=== PATIENT | female | born 1965 | race Caucasian/White ===

== ENCOUNTER → 2022-02-02 08:21 | Outpatient (CLI) | payer OTHER, SELFPAY ==
--- NOTE | ~2022-02-02 | MM_ITS ---
EXAMINATION: MM screening jordy BI w garrett HISTORY: Screening mammogram TECHNIQUE: Craniocaudal and mediolateral oblique 3-D tomosynthesis images were obtained and synthetic 2-D images were generated. CAD analysis was submitted and interpreted. COMPARISON: 06/05/2018, bilateral screening mammogram examinations BREAST PARENCHYMAL COMPOSITION: There are scattered areas of fibroglandular density. FINDINGS: There is no evidence of suspicious mass, calcification, or architectural distortion to sugg est malignancy in either breast. There has been no suspicious interval change. IMPRESSION: 1. No mammographic evidence of malignancy. 2. Recommend routine screening mammography in one year. BI-RADS Category 1: Negative Reviewed, dictated and finalized at location A. ETARY ADMINISTRATIVE ASSISTANT
== END ==
PROVIDERS: PCP Obstetrics & Gynecology; Visit Provider Obstetrics & Gynecology
DX: Z12.31 Encounter for screening mammogram for malignant neoplasm of breast (principal)
CPT/HCPCS: 77063; 77067

== ENCOUNTER 2022-03-31 12:22 | Outpatient (CLI) | payer OTHER, SELFPAY ==
--- NOTE | ~2022-03-31 | CT_ITS ---
EXAMINATION: CT abdomen pelvis w con DATE: 03/31/2022 13:41 INDICATION: Abdominal pain. TECHNIQUE: Computed tomography (CT) of the abdomen and pelvis was performed with 100 mL Omnipaque 350 intravenous contrast. Automated exposure control and iterative reconstruction technique were employe d. The dose-length product was 222.66 mGy-cm. COMPARISON: None. FINDINGS: The visualized portions of the lung bases demonstrates minimal atelectasis. No pleural effu javier. The heart size is normal. No pericardial effusion. There is a small sliding hiatal hernia. The liver, gallbladder, spleen, pancreas, adrenal glands, and right kidney are normal. There is a [address] in left kidney. The appendix is normal. There is wall thickening involving the distal 30-40 cm of ileum. There are no dilated loops of bowel. There are no pathologically enlarged lymph nodes. There i s a small volume of ascites. There is no significant stenosis of celiac axis, superior mesenteric art pamela, or inferior mesenteric artery. There is enlargement of left ovarian vein, consistent with pelvic venous insufficiency. There is moderate thoracic spondylosis and mild lumbar spondylosis. 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 IMPRESSION: 1. Wall thickening involving the distal 30-40 cm of ileum, consistent with enteritis. The differentia l diagnosis includes infectious enteritis and Crohn disease. 2. Small volume of ascites. Reviewed, dictated and finalized at location A. R AND SCALER IMPRESSION: 1. Wall thickening involving the distal 30-40 cm of ileum, consistent with ente ritis. The differential diagnosis includes infectious enteritis and Crohn disea se. 2. Small volume of ascites.
[2022-03-31 13:31] LABS: Estimated Glomerular Filt Rate > 60
== END 2022-03-31 12:23 | disposition home or self-care (01) ==
PROVIDERS: PCP Family Medicine; Visit Provider Family Medicine
DX: R10.9 Unspecified abdominal pain (principal); R18.8 Other ascites
CPT/HCPCS: 74177; Q9967

== ENCOUNTER 2023-11-29 15:54 | Outpatient (CLI) | payer OTHER, SELFPAY ==
--- NOTE | ~2023-11-29 | MM_ITS ---
EXAMINATION: MM screening jordy BI w garrett HISTORY: Screening mammogram TECHNIQUE: Craniocaudal and mediolateral oblique 3-D tomosynthesis images were obtained and synthetic 2-D images were generated. CAD analysis was submitted and interpreted. COMPARISON: 02/02/2022, 06/05/2018, 04/23/2014 BREAST PARENCHYMAL COMPOSITION:Dense: The breasts are heterogeneously dense, which may obscure small masses. FINDINGS: There is a focal area of more pronounced distortion in the outer left breast. No suspicious mass, calcification, or architectural distortion are identified in the right breast. IMPRESSION: Focal area of more pronounced distortion in the outer left breast. Spot compression views, and possib ly ultrasound, recommended for further evaluation. BI-RADS Category 0: Incomplete: Needs additional imaging evaluation. Reviewed, dictated and finalized at [facility]. IMPRESSION: Focal area of more pronounced distortion in the outer left breast. Spot juan javier views, and possibly ultrasound, recommended for further evaluation. BI-RADS Category 0: Incomplete: Needs additional imaging evaluation.
== END 2023-11-29 15:55 | disposition home or self-care (01) ==
LOC: MICIMG 15:55
PROVIDERS: PCP Obstetrics & Gynecology; Visit Provider Obstetrics & Gynecology
DX: Z12.31 Encounter for screening mammogram for malignant neoplasm of breast (principal); R92.8 Other abnormal and inconclusive findings on diagnostic imaging of breast
CPT/HCPCS: 77063; 77067

== ENCOUNTER 2023-12-16 08:15 | Outpatient (CLI) | payer OTHER, SELFPAY ==
--- NOTE | ~2023-12-16 | MMUS_ITS ---
EXAMINATION: MM diagnostic jordy LT w garrett, US breast LT limited HISTORY: Follow-up left breast asymmetry TECHNIQUE: Additional 3-D tomosynthesis images of the left breast were performed and synthetic 2-D im ages were generated. CAD analysis was submitted and interpreted. High resolution Limited left breast ultrasound was performed. COMPARISON: Comparison to multiple prior studies sequentially, with oldest reviewed study dated 04/23. BREAST PARENCHYMAL COMPOSITION: Not dense: There are scattered areas of fibroglandular density. FINDINGS: MAMMOGRAPHIC FINDINGS: There is a persistent asymmetry in the upper outer quadrant of the left breast. No definitive archite ctural distortion or discrete mass. There are no suspicious calcifications. ULTRASOUND: Limited left breast ultrasound: At 2:00, 5 cm from the nipple there is a normal intramammary lymph no de measuring 6 mm. No suspicious masses to suggest malignancy. IMPRESSION: 1. Probable benign asymmetry of the left breast without sonographic correlate. 2. Recommend 6 month follow-up diagnostic left mammogram BI-RADS category 3, probably benign findings. Reviewed, dictated and finalized at location B. IMPRESSION: 1. Probable benign asymmetry of the left breast without sonographic correlate. 2. Recommend 6 month follow-up diagnostic left mammogram BI-RADS category 3, probably benign findings.
== END 2023-12-16 08:16 | disposition home or self-care (01) ==
LOC: MICIMG 08:16
PROVIDERS: PCP Obstetrics & Gynecology; Visit Provider Obstetrics & Gynecology
DX: R92.8 Other abnormal and inconclusive findings on diagnostic imaging of breast (principal)
CPT/HCPCS: 76642; 77061; 77065; G0279

== ENCOUNTER 2024-06-18 08:14 | Outpatient (CLI) | payer OTHER, SELFPAY ==
--- NOTE | ~2024-06-18 | MMUS_ITS ---
EXAMINATION: US breast LT limited, MM diagnostic jordy LT w garrett HISTORY: Follow-up left breast asymmetry TECHNIQUE: Additional 3-D tomosynthesis images of the left breast were performed and synthetic 2-D im ages were generated. CAD analysis was submitted and interpreted. High resolution Limited left breast ultrasound was performed. COMPARISON: No prior studies for comparison. BREAST PARENCHYMAL COMPOSITION: Not dense: There are scattered areas of fibroglandular density. FINDINGS: MAMMOGRAPHIC FINDINGS: There is persistent asymmetry in the upper outer quadrant of the left breast which is not significant ly changed allowing for differences of technique. No new masses or suspicious calcifications. ULTRASOUND: Limited left breast ultrasound: At 2:00, 5 cm from the nipple there is a intramammary lymph node. At 2:00, 3 cm from the nipple there is an irregular shaped hypoechoic 4 mm mass with indistinct margins, no posterior features and marginal vascularity. IMPRESSION: 1. Slightly irregular shaped 4 mm left breast mass at 2:00, 3 cm from the nipple. 2. Ultrasound-guided left breast biopsy recommended. BI-RADS category 4, suspicious findings. Reviewed, dictated and finalized at location A. IMPRESSION: 1. Slightly irregular shaped 4 mm left breast mass at 2:00, 3 cm from the nippl e. 2. Ultrasound-guided left breast biopsy recommended. BI-RADS category 4, suspicious findings.
== END 2024-06-18 08:15 | disposition home or self-care (01) ==
PROVIDERS: PCP Obstetrics & Gynecology; Visit Provider Obstetrics & Gynecology
DX: R92.8 Other abnormal and inconclusive findings on diagnostic imaging of breast (principal)
CPT/HCPCS: 76642; 77061; 77065; G0279

== ENCOUNTER 2024-08-02 08:01 | Outpatient (CLI) | payer OTHER, SELFPAY ==
--- NOTE | ~2024-08-02 | US_ITS ---
US breast LT limited 08/02/2024 09:03 Indication: Left breast mass seen on prior examination. Biopsy requested. Procedure: High-resolution Limited ultrasound of the left breast. Comparison: 06/18/2024 Findings: The area of abnormality at 2:00, 3 cm from the nipple is identified but cannot be confirmed on orthogonal images and synthetic appears to blend with surrounding tissue and varying planes. No d iscrete mass identified for biopsy purposes. Impression: 1: No discrete mass can be confirmed in orthogonal images in the area of previously demonstrated abno rmality at 2:00, 3 cm from the nipple in the left breast. This likely represents normal heterogeneous fibroglandular tissue. BI-RADS CATEGORY 3-PROBABLY BENIGN FINDING RECOMMENDATION: Six-month follow-up diagnostic left mammogram and Limited left breast ultrasound presley mmended Reviewed, dictated and finalized at location [] Impression: 1: No discrete mass can be confirmed in orthogonal images in the area of previo usly demonstrated abnormality at 2:00, 3 cm from the nipple in the left breast. This likely represents normal heterogeneous fibroglandular tissue. BI-RADS CATEGORY 3-PROBABLY BENIGN FINDING RECOMMENDATION: Six-month follow-up diagnostic left mammogram and Limited left breast ultrasound recommended
== END 2024-08-02 08:02 | disposition home or self-care (01) ==
PROVIDERS: PCP Physician Assistant Medical; Visit Provider Surgery
DX: N63.21 Unspecified lump in the left breast, upper outer quadrant (principal); R92.8 Other abnormal and inconclusive findings on diagnostic imaging of breast
CPT/HCPCS: 76642

== ENCOUNTER 2024-12-04 11:22 | Outpatient (CLI) | payer OTHER, SELFPAY ==
--- NOTE | ~2024-12-04 | MMUS_ITS ---
EXAMINATION: MM diagnostic jordy BI w garrett, US breast LT limited INDICATION: 59-year old female; 6 month follow up asymmetry in the left breast with no sonographic correlate, initially evaluated on 12/16/2023. COMPARISON: 06/18/2024 through 04/23/2014. TECHNIQUE: Bilateral breast Digital breast tomosynthesis ML, MLO and CC with Spot compression in CC and MLO views of the left breast were obtained with computer-aided detection to assist in interpretation of the study. MAMMOGRAM FINDINGS: There are scattered areas of fibroglandular density. The asymmetry of concern in the upper outer left breast at middle third redemonstrated is Unchanged. No other focal dominant mass, architectural distortion, or suspicious microcalcifications are identified in either breast. LEFT BREAST ULTRASOUND FINDINGS: Targeted sonographic evaluation of the area of concern was completed. The previously reported hypoechoic mass at 12:00, 3 cm from the nipple has resolved in the interval and is not seen on this current examination. Intramammary lymph node at 2:00, 5 cm from the nipple is unchanged. IMPRESSION: Left breast probably benign asymmetry is unchanged and as demonstrated 12 months stability. No mammographic evidence of malignancy within the right breast. RECOMMEND: Diagnostic bilateral mammogram in 12 months. BI-RADS 2, BENIGN Reviewed, dictated and finalized at location B. IMPRESSION: Left breast probably benign asymmetry is unchanged and as demonstrated 12 shruthi hs stability. No mammographic evidence of malignancy within the right breast. RECOMMEND: Diagnostic bilateral mammogram in 12 months. BI-RADS 2, BENIGN
--- OUTSIDE RECORDS SUMMARY | 2024-12-04 11:24 | XMS_ITS | Clinical Summary ---
Author Organization [facility] Address [facility] [place] [address] Care Team Providers Care Line Person Name Role Phone Rhona Santana PA-C Primary Care Provider [phone]- [phone] Allergies Active Allergy Reactions Criticality Noted Date Comments Penicillins Unknown 04/13/2011 Long time ago as a baby Medications amLODIPine-benaz epril (LOTREL) 5-20 MG capsule 01/23/2024 Act joão Estradiol-Noreth indrone Acet 0.5-0.1 MG Tab Take 1 tablet by mouth daily. 12/13/2023 Active SYNTHROID 100 MCG tablet Take 1 tablet (100 mcg total) by mouth daily. Active Active Problems No known active problems Resolved Problems Problem Noted Date Diagnosed Date Resolved Date Encounter for screening colonoscopy 01/24/2024 01/30/2024 Encounter for screening colonoscopy 01/24/2024 03/12/2024 Encounter for screening colonoscopy 01/24/2024 03/19/2024 Family History Medical History Relation Comments Cancer Mother breast Relation Status Comments Mother Social History Tobacco Use Types Packs/Day Years Used Date Smoking Tobacco: Never Passive Smoke Exposure: Never Smokeless Tobacco: Never Tobacco Cessation:Counseling Given: Not Answered Alcohol Use Standard Drinks/Week Comments Yes 0 (1 standard drink = 0.6 oz pur e alcohol) rarely Comments No Sex and Gender Information Value Date Recorded Sex Assigned at Not on file Legal Sex Female 8:20 PM CDT Gender Identity Not on file Sexual Orientation Not on file Last Filed Vital Signs Vital Sign Reading Time Taken Comments Blood Pressure 144/75 03/15/2024 12:02 PM ADMINISTRATION PROFESSIONAL Pulse 77 03/15/2024 12:02 PM ADMINISTRATION PROFESSIONAL Temperature 36.3 C (97.4 F) 03/15/2024 11:00 AM ADMINISTRATION PROFESSIONAL Respiratory Rate 16 03/15/2024 12:02 PM ADMINISTRATION PROFESSIONAL Oxygen Saturation 100% 03/15/2024 12:02 PM ADMINISTRATION PROFESSIONAL Inhaled Oxygen Concentration - - Weight 56.7 kg (125 lb) 03/15/2024 8:32 AM ADMINISTRATION PROFESSIONAL Height 156.2 cm (5' 1.5) 03/15/2024 8:32 AM ADMINISTRATION PROFESSIONAL Body Mass Index 23.24 03/15/2024 8:32 AM ADMINISTRATION PROFESSIONAL Plan of Treatment Health Maintenance Due Date Last Done Comments Cervical Cancer Screening Pa p Smear (Age 30 to 64) Every 3 Years 1965 Annual Physical 1968 Hepatitis C 10/18/1983 Cervical Cancer Screening Pa p with HPV Testing (Age 30 to 64) Every 5 Years 10/18/1995 Cervical Cancer Screening with HPV 10/18/1995 Mammogram Screening 2005 Pneumococcal Vaccine: 50+ Ye ars (1 of 1 - PCV) 10/18/2015 Zoster Vaccines (1 of 2) 10/18/2015 PHQ-2 (Physician [place]) 03/14/2024 DTaP, Tdap and Td Vaccines ( 2 - Td or Tdap) 08/20/2024 08/20/2014 COVID-19 Vaccine (1 - 2023-2 5 season) 2024 Colorectal Cancer Screening Colonoscopy (10 Years) 03/15/2034 03/15/2024 Meningococcal B Vaccine Aged Out No l onger eligible based on patient's age to complete this topic Meningococcal Vaccine Aged Out No azucena bailey eligible based on patient's age to complete this topic RSV Immunizations Under 20 Months Aged Out No longer eligible based on patient's age to complete this topic Insurance [employer] [facility] Care Teams Line Person Relationship Specialty Start Date End Date Rhona Santana PA-C [address] [place], [place] [id number] [place] [address] PCP - General PHYSICIAN PUBLIC SERVICE ADMINISTRATOR 09/04/21
--- OUTSIDE RECORDS SUMMARY | 2024-12-04 12:05 | XMS_ITS | Clinical Summary ---
Author Organization [facility] Address [facility] [place] [address] Care Team Providers Care Microarray Specialist Name Role Phone Rhona Santana PA-C Primary Care Provider +1- [phone] Allergies Active Allergy Reactions Criticality Noted Date [...] Comments Blood Pressure 144/75 03/15/2024 12:02 PM BOTTOMING ROOM INSPECTOR Pulse 77 03/15/2024 12:02 PM BOTTOMING ROOM INSPECTOR Temperature 36.3 C (97.4 F) 03/15/2024 11:00 AM BOTTOMING ROOM INSPECTOR Respiratory Rate 16 03/15/2024 12:02 PM BOTTOMING ROOM INSPECTOR Oxygen Saturation 100% 03/15/2024 12:02 PM BOTTOMING ROOM INSPECTOR Inhaled Oxygen Concentration - - Weight 56.7 kg (125 lb) 03/15/2024 8:32 AM BOTTOMING ROOM INSPECTOR Height 156.2 cm (5' 1.5) 03/15/2024 8:32 AM BOTTOMING ROOM INSPECTOR Body Mass Index 23.24 03/15/2024 8:32 AM BOTTOMING ROOM INSPECTOR Plan of Treatment Health Maintenance Due Date [...] Vaccines (1 of 2) 10/18/2015 PHQ-2 (Physician [place]) 03/14/2024 DTaP, Tdap and Td Vaccines ( [...] age to complete this topic Insurance AETNA [facility] Care Teams Microarray Specialist Relationship Specialty Start Date End Date Rhona Santana PA-C [address] [place], [place] [id number] [place] [address] PCP - General PHYSICIAN WEDDING DECORATOR 09/04/21
== END 2024-12-04 11:23 | disposition home or self-care (01) ==
PROVIDERS: PCP Physician Assistant Medical; Visit Provider Surgery
DX: N63.21 Unspecified lump in the left breast, upper outer quadrant (principal); R92.8 Other abnormal and inconclusive findings on diagnostic imaging of breast
CPT/HCPCS: 76642; 77062; 77066; G0279